=== PATIENT | male | born 1950 | race Caucasian/White ===

== ENCOUNTER → 2017-05-02 13:42 | Outpatient (CLI) | payer MEDICARE, OTHER | END | disposition home or self-care (01) | LOC: D.MRI 13:42 | DX: H35.82 Retinal ischemia (principal); H43.822 Vitreomacular adhesion, left eye; H35.372 Puckering of macula, left eye ==

== ENCOUNTER 2017-12-09 10:15 | Inpatient (IN) | payer MEDICARE, OTHER ==
[~2017-12-09] VITALS: Ht 185.4 cm; Wt 99.8 kg
--- NOTE | ~2017-12-09 | EC ---
PATIENT:SANDRA REILLY DATE OF SERVICE: 12/09/17 SEX: M MEDICAL RECORD: [id number] DATE OF : [birth year] LOCATION:[facility] AGE OF PATIENT: 67 ADMISSION DATE: 12/09/17 REFERRING PHYSICIAN: INTERPRETING PHYSICIAN: MOIRA HARPER MD ECHOCARDIOGRAM REPORT ECHO CHARGES 4 ECHO COMPLETE CLINICAL DIAGNOSIS: PNA,SOB/PLEURSIY/PE ECHOCARDIOGRAPHIC MEASUREMENTS (adult normal given) AC root (d.<3.7cm) 4.0 cm LV Septum d (<1.2 cm> 1.8 cm Valve Excursion 2.0 cm LV Septum (systole) 1.6 cm Left Atria (s.<4.0cm> 3.6 cm LVPW d(<1.2cm) 1.6 cm RV (d.<2.3cm) 3.8 cm LVPW (sytole) 1.8 cm LV diastole(<5.6CM) 4.2 cm MV E-F(>70mm/sec) cm LV systole 2.8 cm LVOT Diameter 2.0 cm MV exc.(>10mm) 21.7 cm Est.ejection fraction (50-75%) % Pericardial Effusion N DOPPLER: LVIT cm/sec A 55.0 cm/sec E 45.0 cm/sec LA cm/sec RVSP 27 mmHg LVOT 97 cm/sec AOP1/2T m/s Asc. Ao 109 cm/sec RVOT 68 cm/sec RA cm/sec PA 115 cm/sec AV Gradient Peak 4.79 mmHg AV Mean 1.99 mmHg AV Area 3.0 cm MV Gradient Peak 2.21 mmHg MV Mean 0.92 mmHg MV Area cm COMMENTS: Naphthalene Operator: Bety FRIED Loan Review Officer: Lorenza Harper TAPE# PACS DATE OF SERVICE: 12/11/2017 PROCEDURE: Transthoracic echocardiogram. FINDINGS: 1. Left ventricle is hyperdynamic. Ejection fraction 60% to 65%. No regional wall motion abnormalities are seen. Mitral valve not well visualized, but grossly normal. 2. The right ventricle is mildly dilated with normal function. The tricuspid valve has mild tricuspid regurgitation. The RVSP is normal. ECHOCARDIOGRAM REPORT [id number] SANDRA REILLY 3. The aortic valve is normal. 4. There is no pericardial effusion. 5. The interatrial septum appears to be grossly intact. CONCLUSION: The patient has evidence of mild hypertensive heart disease with hyperdynamic LV systolic function. No regional wall motion abnormalities and although he has a history of recent PE, the pulmonary pressures here are calculated to be normal. TRANSINT:[id number] Voice Confirmation ID: [id number] DOCUMENT ID: [id number] 12/19/2017 Edited to correct date of service, dm. MOIRA HARPER MD at 1522 CC: [id number] DICTATION DATE: 12/12/17 0837 RAIL SIGNAL MECHANIC: 12/12/17 1117 DIS IN 12/12/17 [facility] [address] [facility] [place] [address]
[2017-12-09 11:38] LABS: BASOPHILS 0.1 % (0-2); EOSINOPHILS 1.9 % (0-7); HEMATOCRIT 39.5 % (42.0-54.0); HEMOGLOBIN 13.4 g/dL (13.5-17.5); IMMATURE GRANULOCYTES 0.3 % (0-5); LYMPHOCYTES 4.2 % (15-50); MCH 30.7 pg (26.0-34.0); MCHC 33.9 g/dL (31.0-37.0); MCV 90.4 fL (80.0-100.0); MEAN PLATELET VOLUME 9.9 fL (7.4-10.4); MONOCYTES 11.7 % (2-11); NEUTROPHILS 81.8 % (40-80); PLATELET COUNT 229 10x3/uL (130-400); RBC 4.37 10x6/uL (4.20-6.10); RDW 11.6 % (11.5-14.5); WBC 11.1 10x3/uL (4.8-10.8)
[2017-12-09 11:47] LABS: INR 1.18 (0.85-1.17); PROTIME 14.6 SECONDS (11.6-15.0)
[2017-12-09 12:02] LABS: ALBUMIN 2.8 g/dL (3.4-5.0); ALKALINE PHOSPHATASE 80 U/L (46-116); ALT (SGPT) 13 U/L (10-68); BILIRUBIN - TOTAL 0.34 mg/dL (0.2-1.3); CALC OSMOLALITY 271 mosm/kg (275-300); CALCIUM 9.5 mg/dL (8.5-10.1); CARBON DIOXIDE 29.5 mmol/L (21.0-32.0); CHLORIDE - SERUM 99 mmol/L (98-107); CREATININE - SERUM 1.1 mg/dL (0.6-1.3); GLUCOSE 107 mg/dL (74-106); POTASSIUM - SERUM 4.4 mmol/L (3.5-5.1); PROTEIN - SERUM 7.4 g/dL (6.4-8.2); SODIUM 135 mmol/L (136-145); UREA NITROGEN 18 mg/dL (7-18); eGFR NON AFRICAN AMERICAN 71 mL/min (90-120)
[2017-12-09 12:04] LABS: TROPONIN-I < 0.017 ng/mL (0.000-0.060)
[2017-12-09] MEDS ORDERED: PROTONIX40 MG PO (18:43)
[2017-12-09 22:00] VITALS: BP 121/78
[2017-12-10 03:08] VITALS: BMI 29.0
[2017-12-10 04:00] VITALS: BP 130/70
[2017-12-10 05:25] LABS: BASOPHILS 0.2 % (0-2); EOSINOPHILS 2.7 % (0-7); HEMATOCRIT 35.6 % (42.0-54.0); HEMOGLOBIN 11.9 g/dL (13.5-17.5); IMMATURE GRANULOCYTES 0.5 % (0-5); LYMPHOCYTES 10.6 % (15-50); MCH 30.4 pg (26.0-34.0); MCHC 33.4 g/dL (31.0-37.0); MEAN PLATELET VOLUME 10.2 fL (7.4-10.4); PLATELET COUNT 233 10x3/uL (130-400); RBC 3.91 10x6/uL (4.20-6.10); RDW 11.8 % (11.5-14.5)
[2017-12-10 05:53] LABS: WBC 6.3 10x3/uL (4.8-10.8)
[2017-12-10 05:55] LABS: ALBUMIN 2.2 g/dL (3.4-5.0); ANION GAP 11.9 mmol/L (8-16); BILIRUBIN - TOTAL 0.2 mg/dL (0.2-1.3); CALCIUM 8.3 mg/dL (8.5-10.1); CARBON DIOXIDE 26.4 mmol/L (21.0-32.0); CREATININE - SERUM 1.1 mg/dL (0.6-1.3); POTASSIUM - SERUM 4.3 mmol/L (3.5-5.1); PROTEIN - SERUM 6.2 g/dL (6.4-8.2)
[2017-12-10 10:57] VITALS: BP 131/83
[2017-12-10 12:45] VITALS: BP 112/80
[2017-12-10 13:35] VITALS: BMI 29.0
[2017-12-10 16:39] VITALS: Ht 185.4 cm; Wt 99.8 kg
[2017-12-10 16:45] VITALS: BP 114/73
[2017-12-10 18:33] LABS: CKMB 0.8 U/L (0.0-3.6); CREATINE KINASE 73 UL (21-232)
[2017-12-10 18:34] LABS: TROPONIN-I < 0.017 ng/mL (0.000-0.060)
[2017-12-10 20:00] VITALS: BP 116/72
[2017-12-11 00:43] LABS: CKMB 0.6 U/L (0.0-3.6); CREATINE KINASE 66 UL (21-232); TROPONIN-I < 0.017 ng/mL (0.000-0.060)
[2017-12-11 05:00] VITALS: BP 120/70
[2017-12-11 07:43] LABS: HEMATOCRIT 35.4 % (42.0-54.0); HEMOGLOBIN 12.1 g/dL (13.5-17.5); LYMPHOCYTES 15.5 % (15-50); MCH 30.3 pg (26.0-34.0); MCHC 34.2 g/dL (31.0-37.0); MEAN PLATELET VOLUME 9.4 fL (7.4-10.4); NEUTROPHILS 73.4 % (40-80); PLATELET COUNT 231 10x3/uL (130-400); RBC 3.99 10x6/uL (4.20-6.10); RDW 11.9 % (11.5-14.5); WBC 4.8 10x3/uL (4.8-10.8)
[2017-12-11 07:53] LABS: MCV 88.7 fL (80.0-100.0)
[2017-12-11 08:35] LABS: ALBUMIN 2.3 g/dL (3.4-5.0); ALKALINE PHOSPHATASE 65 U/L (46-116); ALT (SGPT) 16 U/L (10-68); CALC OSMOLALITY 290 mosm/kg (275-300); CALCIUM 8.4 mg/dL (8.5-10.1); CARBON DIOXIDE 26.3 mmol/L (21.0-32.0); CHLORIDE - SERUM 110 mmol/L (98-107); CKMB 0.5 U/L (0.0-3.6); CREATINE KINASE 64 UL (21-232); GLUCOSE 112 mg/dL (74-106); POTASSIUM - SERUM 3.8 mmol/L (3.5-5.1); PROTEIN - SERUM 6.1 g/dL (6.4-8.2); SODIUM 146 mmol/L (136-145); TROPONIN-I < 0.017 ng/mL (0.000-0.060); UREA NITROGEN 11 mg/dL (7-18); eGFR NON AFRICAN AMERICAN 80 mL/min (90-120)
[2017-12-11 09:03] VITALS: BP 88/59
[2017-12-11 13:53] VITALS: BP 100/67
[2017-12-11 16:20] VITALS: BP 103/63
[2017-12-11 22:28] VITALS: BP 107/70
[2017-12-12 02:16] VITALS: BP 125/83
[2017-12-12 04:00] VITALS: BP 134/92
[2017-12-12 06:04] LABS: BASOPHILS 0.2 % (0-2); EOSINOPHILS 6.4 % (0-7); HEMATOCRIT 35.6 % (42.0-54.0); HEMOGLOBIN 11.7 g/dL (13.5-17.5); IMMATURE GRANULOCYTES 0.6 % (0-5); LYMPHOCYTES 24.6 % (15-50); MCH 29.8 pg (26.0-34.0); MCHC 32.9 g/dL (31.0-37.0); MEAN PLATELET VOLUME 9.9 fL (7.4-10.4); MONOCYTES 8.7 % (2-11); NEUTROPHILS 59.5 % (40-80); PLATELET COUNT 266 10x3/uL (130-400); RBC 3.92 10x6/uL (4.20-6.10); RDW 12.1 % (11.5-14.5); WBC 5.3 10x3/uL (4.8-10.8)
[2017-12-12 06:06] LABS: MCV 90.8 fL (80.0-100.0)
[2017-12-12 06:17] LABS: ALBUMIN 2.3 g/dL (3.4-5.0); ALKALINE PHOSPHATASE 62 U/L (46-116); ALT (SGPT) 15 U/L (10-68); CALC OSMOLALITY 289 mosm/kg (275-300); CALCIUM 8.3 mg/dL (8.5-10.1); CARBON DIOXIDE 25.6 mmol/L (21.0-32.0); CHLORIDE - SERUM 112 mmol/L (98-107); GLUCOSE 98 mg/dL (74-106); POTASSIUM - SERUM 3.9 mmol/L (3.5-5.1); PROTEIN - SERUM 6.1 g/dL (6.4-8.2); SODIUM 146 mmol/L (136-145); UREA NITROGEN 11 mg/dL (7-18); eGFR NON AFRICAN AMERICAN 80 mL/min (90-120)
[2017-12-12 08:17] VITALS: BP 128/85
[2017-12-12 08:20] LABS: FOLATE (FOLIC ACID) - SERUM 9.9 ng/mL (>3.0)
[2017-12-12 11:47] VITALS: BP 136/92
[2017-12-12] MEDS ORDERED: MUCINEX600 MG PO (13:11)
[2017-12-12] MEDS ORDERED: TESSALON PERLE100 MG PO (13:11)
[2017-12-12] MEDS ORDERED: FLORAJEN3 CAPS460 MG PO (13:11)
[2017-12-12] MEDS ORDERED: LEVAQUIN750 MG PO (13:12)
[2017-12-12] MEDS ORDERED: ELIQUIS5 MG PO (13:14)
[2017-12-16 18:09] LABS: FACTOR II DNA ANALYSIS Negative (())
== END 2017-12-12 13:30 | disposition home or self-care (01) | DRG 175 ==
LOC: D.ER 10:15 → D.MS 16:49
PROVIDERS: Emergency Medicine; Family Medicine; Internal Medicine Hematology & Oncology; Nurse Practitioner Family
DX: I26.99 Other pulmonary embolism without acute cor pulmonale (principal); J18.1 Lobar pneumonia, unspecified organism; J90 Pleural effusion, not elsewhere classified; E83.51 Hypocalcemia; K21.9 Gastro-esophageal reflux disease without esophagitis; I48.91 Unspecified atrial fibrillation; I95.9 Hypotension, unspecified; I11.9 Hypertensive heart disease without heart failure

== ENCOUNTER → 2018-01-20 12:56 | Outpatient (CLI) | payer MEDICARE, OTHER ==
[2017-12-10 16:39] VITALS: BMI 29.0
[~2018-01-20 12:56] MED LIST: ELIQUIS5 MG PO; FLORAJEN3 CAPS460 MG PO; LEVAQUIN750 MG PO; MUCINEX600 MG PO; PROTONIX40 MG PO; TESSALON PERLE100 MG PO
== END | disposition home or self-care (01) ==
LOC: D.CT 01-01 14:30
DX: I26.99 Other pulmonary embolism without acute cor pulmonale (principal)

== ENCOUNTER → 2018-02-10 19:44 | Outpatient (CLI) | payer MEDICARE, OTHER ==
[2017-12-10 16:39] VITALS: BMI 29.0
== END | disposition home or self-care (01) ==
LOC: D.SLEEP 19:44
DX: G47.10 Hypersomnia, unspecified (principal); G47.33 Obstructive sleep apnea (adult) (pediatric); I48.0 Paroxysmal atrial fibrillation; R40.0 Somnolence; R42 Dizziness and giddiness; I26.99 Other pulmonary embolism without acute cor pulmonale

== ENCOUNTER → 2018-05-12 17:38 | Outpatient (CLI) | payer MEDICARE, OTHER ==
[2017-12-10 16:39] VITALS: BMI 29.0
[2018-05-12 19:42] LABS: LDL-HDL RATIO 3.3 ratio (1.5-3.5)
== END | disposition home or self-care (01) ==
LOC: D.LABREF 17:38
PROVIDERS: Internal Medicine Cardiovascular Disease
DX: I10 Essential (primary) hypertension (principal)

== ENCOUNTER → 2018-10-07 16:43 | Outpatient (CLI) | payer MEDICARE, OTHER ==
[2017-12-10 16:39] VITALS: BMI 29.0
[2018-10-07 17:29] LABS: LDL-HDL RATIO 3.2 ratio (1.5-3.5)
== END | disposition home or self-care (01) ==
LOC: D.LABREF 16:43
PROVIDERS: Internal Medicine Cardiovascular Disease
DX: Z13.220 Encounter for screening for lipoid disorders (principal)

== ENCOUNTER → 2019-11-03 09:45 | Outpatient (CLI) | payer MEDICARE, OTHER ==
[2017-12-10 16:39] VITALS: BMI 29.0
--- NOTE | ~2019-11-03 | ST ---
PATIENT:SANDRA REILLY MEDICAL RECORD: [id number] SEX: M LOCATION:[facility] ORDER #: ADMISSION DATE: 11/03/19 AGE OF PATIENT: 69 REFERRING PHYSICIAN: INTERPRETING PHYSICIAN: GONZALO SCHWARTZ MD DATE OF SERVICE: 11/03/2019 PROCEDURE: Nuclear stress test. INDICATION: Angina, abnormal ECG, Atrial fibrillation, family history of coronary artery disease, shortness of breath. He was exercised on standard Gregory protocol for 6 minutes 30 seconds achieving 85% max target heart rate response with 33 mCi of sestamibi injected at peak stress, 11 mCi used previously for rest images. FINDINGS: Gated SPECT reveals preserved ejection fraction at 62% with good wall motioning and thickening and brightening throughout all segments. SPECT imaging: Cardiolite was used as myocardial perfusion agent. There are reversible changes inferiorly, apically, and septally. This includes the basal, mid, apical and inferior segments, apex itself as well as the inferoseptal, basal septal and mid septal. OVERALL IMPRESSION: This is an abnormal nuclear stress test of intermediate risk revealing a relatively large perfusion defect inferiorly, apically, and septally. It shows reversibility suggestive of hemodynamically significant coronary artery disease. TRANSINT:[id number] Voice Confirmation ID: [id number] DOCUMENT ID: [id number] GONZALO SCHWARTZ MD CC: [id number] DICTATION DATE: 11/03/19 1611 METAL PICKLING EQUIPMENT OPERATOR: 11/04/19 0701 DEP CLI 11/03/19 [facility] [address] [place] [address]
--- NOTE | ~2019-11-03 | EC ---
PATIENT:SANDRA REILLY DATE OF SERVICE: 11/03/19 SEX: M MEDICAL RECORD: [id number] DATE OF : [birth year] [facility] AGE OF PATIENT: 69 ADMISSION DATE: 11/03/19 REFERRING PHYSICIAN: INTERPRETING PHYSICIAN: GONZALO KAT MD ECHOCARDIOGRAM REPORT ECHO CHARGES 4 ECHO COMPLETE Date: 11/03/19 CLINICAL DIAGNOSIS: TRICUSPID REGURG ECHOCARDIOGRAPHIC MEASUREMENTS (adult normal given) AC root (d.<3.7cm) 4.7 cm LV Septum d (<1.2 cm> 1.5 cm Valve Excursion 2.0 cm LV Septum (systole) 1.6 cm Left Atria (s.<4.0cm> 3.7 cm LVPW d(<1.2cm) 1.6 cm RV (d.<2.3cm) 4.7 cm LVPW (sytole) 1.8 cm LV diastole(<5.6CM) 4.2 cm MV E-F(>70mm/sec) cm LV systole 2.7 cm LVOT Diameter 2.0 cm MV exc.(>10mm) cm Est.ejection fraction (50-75%) % DOPPLER: LVIT cm/sec A 74.0 cm/sec E 60.0 cm/sec LA cm/sec RVSP 34 mmHg LVOT 125 cm/sec AOP1/2T m/s Asc. Ao 119 cm/sec RVOT cm/sec RA cm/sec PA cm/sec AV Gradient Peak 5.68 mmHg AV Mean 3.14 mmHg AV Area 3.2 cm MV Gradient Peak 2.71 mmHg MV Mean 0.79 mmHg MV Area cm COMMENTS: Information Strategist: Bety FRIED Frame Pulley Mortising Machine Operator: 1 Dr. Kat TAPE# PACS Pericardial Effusion N DATE OF SERVICE: 11/03/2019 FINDINGS: 1. Left ventricular chamber size is within normal limits. Left ventricular systolic function is normal. Overall ejection fraction estimated at 55%. 2. Left atrium is within normal limits at 3.7 cm. Right atrium and right ventricular chamber sizes are mildly dilated. 3. Valvular structures have normal structure and motion. 4. Doppler interrogation reveals trace mitral regurgitation, mild tricuspid regurgitation, no other valvular insufficiency or stenosis. Pulmonary systolic ECHOCARDIOGRAM REPORT [id number] SANDRA REILLY pressure estimated at 34 mmHg. 5. No evidence of pericardial effusion or left ventricular thrombus. TRANSINT:[id number] Voice Confirmation ID: [id number] DOCUMENT ID: [id number] GONZALO KAT MD CC: [id number] DICTATION DATE: 11/03/19 161 [facility]: 11/03/19 2256 [facility] [address] [place] [id number]
== END | disposition home or self-care (01) ==
LOC: D.HCCECHO 09:45 → D.HCCARDIO 11-04 10:00
PROVIDERS: ATTEND Internal Medicine Interventional Cardiology
DX: I07.1 Rheumatic tricuspid insufficiency (principal); I48.0 Paroxysmal atrial fibrillation